=== PATIENT | male | born 1975 | race Caucasian/White ===

== ENCOUNTER 2020-05-24 03:09 | Inpatient (IN) | payer OTHER, MEDICAID ==
[~2020-05-24] VITALS: Ht 180.3 cm; Wt 194.1 kg
[2020-05-24 03:19] VITALS: BP 139/96
[2020-05-24] MEDS ORDERED: FLOVENT DISKU250 MCG INH (03:23)
[2020-05-24] MEDS ORDERED: MAGNESIUM250 M1 PO (03:24)
[2020-05-24] MEDS ORDERED: DILTIAZEM ER180 M2 PO (03:24)
[2020-05-24] MEDS ORDERED: KLOR-CON M2020 MEQ PO (03:25)
[2020-05-24] MEDS ORDERED: METFORMIN HCL500 M3 PO (03:25)
[2020-05-24] MEDS ORDERED: LIPITOR40 MG PO (03:25)
[2020-05-24] MEDS ORDERED: CARVEDILOL25 MG PO (03:26)
[2020-05-24] MEDS ORDERED: LISINOPRIL2.5 MG PO (03:26)
[2020-05-24] MEDS ORDERED: XARELTO20 MG PO (03:27)
[2020-05-24] MEDS ORDERED: FUROSEMIDE 40 M40 MG PO (03:27)
[2020-05-24] MEDS ORDERED: ASA81BEC PO (03:28)
[2020-05-24] MEDS ORDERED: METOLAZONE 2.52.5 MG PO (03:28)
[2020-05-24] MEDS ORDERED: AMARYL4 MG PO (03:28)
[2020-05-24] MEDS ORDERED: HUMALOG100 UNIT/1 SUBQ ×2 (03:29)
[2020-05-24] MEDS ORDERED: VICTOZA0.6 MG/0.1 SUBQ (03:29)
[2020-05-24] MEDS ORDERED: LANTUS SUBQ (03:30)
[2020-05-24 04:24] LABS: ABSOLUTE EOSINOPHILS 0.3 thou/uL (0.0-0.7); ABSOLUTE LYMPHOCYTES 2.8 thou/uL (0.8-5.3); ABSOLUTE MONOCYTES 0.5 thou/uL (0.0-1.2); ABSOLUTE NEUTROPHILS 5.1 thou/uL (1.6-8.1); BASOPHILS 0.5 %; EOSINOPHILS 3.2 %; HEMOGLOBIN 11.4 gm/dL (14.0-18.0); LYMPHOCYTES 32.3 %; MCHC 33.6 g/dL (28.0-37.0); MCV 92.4 fL (80.0-100.0); MONOCYTES 5.5 %; MPV 8.4 fl. (7.2-11.1); NUCLEATED RBCS 1 /100WBC; PLATELET COUNT* 277 thou/uL (150-400); POLYS 58.5 %; RBC 3.68 mil/uL (4.50-6.00); WBC 8.8 thou/uL (4.0-11.0)
[2020-05-24 05:17] LABS: INR 1.3
[2020-05-24 05:20] LABS: CREATININE 1.1 mg/dL (0.6-1.3); POTASSIUM 3.4 mmol/L (3.5-5.1)
[2020-05-24 05:31] LABS: ALBUMIN 2.8 g/dL (3.4-5.0); MAGNESIUM 1.9 mg/dL (1.8-2.4); TOTAL BILIRUBIN 0.4 mg/dL (<0.1-1.0); TOTAL PROTEIN 7.3 g/dL (6.4-8.2)
[2020-05-24 10:21] VITALS: BP 144/61
--- NOTE | 2020-05-24 13:27 | EKG ---
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1975 Requested By: Order Number: [id number] MD: Jered Steven Measurements Intervals [place] Rate: 114 P: IA: QRS: -33 QRSD: 115 T: 66 QT: 387 QTc: 534 Interpretive Statements Atrial fibrillation Left ventricular hypertrophy Prolonged QT interval Baseline wander in lead(s) II,III,aVR,aVL,aVF,V1,V2,V3,V4,V5,V6 No previous ECG available for comparison Electronically Signed On 05-24-2020 13:27:17 CDT by Jered Steven [email or web address] <ELECTRONICALLY SIGNED> By: Jered Steven MD, FAC 05/24/20 1327 9 9 Jered Steven MD, FAC /EPI
[2020-05-24 15:00] VITALS: BP 76/41
[2020-05-24 17:00] VITALS: BP 101/61
[2020-05-24 17:01] VITALS: BP 82/31
[2020-05-24 20:00] VITALS: BP 103/70
[2020-05-25] VITALS (7 sets, daily range): BP systolic 94–134; BP diastolic 66–89
[2020-05-25 04:28] LABS: ABSOLUTE BASOPHILS 0.1 thou/uL (0.0-0.2); ABSOLUTE EOSINOPHILS 0.3 thou/uL (0.0-0.7); ABSOLUTE LYMPHOCYTES 2.5 thou/uL (0.8-5.3); ABSOLUTE MONOCYTES 0.6 thou/uL (0.0-1.2); BASOPHILS 0.9 %; EOSINOPHILS 3.3 %; HEMATOCRIT 35.4 % (42.0-52.0); HEMOGLOBIN 11.8 gm/dL (14.0-18.0); LYMPHOCYTES 29.6 %; MCH 31.4 pg (26.0-34.0); MCHC 33.4 g/dL (28.0-37.0); MCV 94.1 fL (80.0-100.0); MONOCYTES 6.8 %; NUCLEATED RBCS 1 /100WBC; PLATELET COUNT* 267 thou/uL (150-400); POLYS 59.4 %; RBC 3.77 mil/uL (4.50-6.00); RDW-CV 16.9 % (10.5-14.5); WBC 8.4 thou/uL (4.0-11.0)
[2020-05-25 04:35] LABS: CALCIUM 8.1 mg/dL (8.5-10.1); CREATININE 1.3 mg/dL (0.6-1.3); POTASSIUM 3.8 mmol/L (3.5-5.1)
[2020-05-25] MEDS ORDERED: VICTOZA0.6 MG/0.1 SUBQ (14:09)
--- NOTE | 2020-05-25 17:28 | 2DMMODE ---
[place] [address] 2 D/M-MODE ECHOCARDIOGRAM Name: RMREBECA FAIRBANKS Room: [address] IN [facility]#: [id number] Admission: 05/25/20 Attend Phys: Perez Ibarra, Discharge: Date of : 73 Date of Service: 05/25/20 1728 Report #: [id number] THIS REPORT FOR: cc: Ariadne El MD, Allison Louise MD [place], Michael J. MD [facility] ~ ADDENDUM APPROVED REPORT Study performed: 05/25/2020 14:41:55 EXAM: Comprehensive 2D, Doppler, and color-flow Echocardiogram Patient Location: In-Patient Room #: [facility][note 3] Status: routine BSA: 2.91 HR: 78 bpm BP: 119/66 mmHg Rhythm: Atrial Fibrillation Other Information Technically limited study due to off axis apical imaging. Indications Atrial Fibrillation Dyspnea 2D Dimensions IVSd: 20.41 (7-11mm) LVOT Diam: 23.13 (18-24mm) LVDd: 50.40 mm PWd: 16.31 (7-11mm) Ascending Ao: 40.32 (22-36mm) LVDs: 27.13 (25-40mm) Aortic Root: 36.86 mm Pulmonary Valve PV Peak Luis Manuel.: 0.90 m/s PV Peak Gr.: 3.27 mmHg Tricuspid Valve RAP Estimate: 10.00 mmHg TR Peak Gr.: 26.41 mmHg RVSP: 36.00 mmHg PA Pressure: 36.00 mmHg Left Ventricle The left ventricle is normal size. There is normal [place] [address] 2 D/M-MODE ECHOCARDIOGRAM Name: RMREBECA FAIRBANKS Room: [address] IN [facility]#: [id number] Admission: 05/25/20 Attend Phys: Perez Ibarra, Discharge: Date of : 73 Date of Service: 05/25/20 1728 Report #: [id number] motion. Mild concentric left ventricular hypertrophy. Left ventricular systolic function is normal. LVEF is 65-70%. This study is not technically sufficient to allow evaluation of the LV diastolic function due to atrial fibrillation. Right Ventricle The right ventricle is normal size. The right ventricular systolic function is normal. Atria The left atrium size is normal. The right atrium size is normal. Aortic Valve The aortic valve is normal in structure. No aortic regurgitation is present. There is no aortic valvular stenosis. Mitral Valve The mitral valve is normal in structure. Mild mitral regurgitation. No evidence of mitral valve stenosis. Tricuspid Valve The tricuspid valve is normal in structure. Mild tricuspid regurgitation. Mild pulmonary hypertension. The RVSP is 45-50 mmHg. Pulmonic Valve The pulmonary valve is normal in structure. There is no pulmonic valvular regurgitation. Great Vessels The aortic root is normal in size. The ascending aorta is mildly dilated. (4.03 cm) IVC is dilated and collapses <50% with inspiration. Pericardium There is no pericardial effusion. <Conclusion> The left ventricle is normal size. Mild concentric left ventricular hypertrophy. Left ventricular systolic function is normal. LVEF is 65-70%. Mild mitral regurgitation. Mild tricuspid regurgitation. Mild pulmonary [place] [address] 2 D/M-MODE ECHOCARDIOGRAM Name: REBECA RM Room: [address] IN [facility]#: [id number] Admission: 05/25/20 Attend Phys: Perez Ibarra, Discharge: Date of : 73 Date of Service: 05/25/201727 Report #: [id number] The RVSP is 45-50 mmHg. IVC is dilated and collapses <50% with inspiration. The ascending aorta is mildly dilated. (4.03 cm) <ELECTRONICALLY SIGNED> By: Baljit Fisher MD, [facility] 05/25/20 1728 27 1728 Baljit Fisher MD, FACC /INF
[2020-05-26 04:00] VITALS: BP 111/68
[2020-05-26 08:00] VITALS: BP 116/77
[2020-05-26 12:25] VITALS: BP 113/62
[2020-05-26 16:20] VITALS: BP 94/67
[2020-05-26 20:00] VITALS: BP 134/65
[2020-05-27 00:27] VITALS: BP 129/83
[2020-05-27 04:00] VITALS: BP 125/75
[2020-05-27 05:07] LABS: ABSOLUTE BASOPHILS 0.1 thou/uL (0.0-0.2); ABSOLUTE EOSINOPHILS 0.3 thou/uL (0.0-0.7); ABSOLUTE LYMPHOCYTES 2.7 thou/uL (0.8-5.3); ABSOLUTE MONOCYTES 0.6 thou/uL (0.0-1.2); BASOPHILS 0.8 %; EOSINOPHILS 3.4 %; HEMATOCRIT 38.5 % (42.0-52.0); HEMOGLOBIN 12.9 gm/dL (14.0-18.0); LYMPHOCYTES 31.6 %; MCH 30.9 pg (26.0-34.0); MCHC 33.4 g/dL (28.0-37.0); MCV 92.6 fL (80.0-100.0); MONOCYTES 6.5 %; NUCLEATED RBCS 0 /100WBC; PLATELET COUNT* 334 thou/uL (150-400); POLYS 57.7 %; RBC 4.15 mil/uL (4.50-6.00); RDW-CV 16.6 % (10.5-14.5); WBC 8.7 thou/uL (4.0-11.0)
[2020-05-27 05:48] LABS: CALCIUM 9.2 mg/dL (8.5-10.1); CREATININE 1.1 mg/dL (0.6-1.3)
[2020-05-27 05:52] LABS: POTASSIUM 2.8 mmol/L (3.5-5.1)
[2020-05-27] MEDS ORDERED: LANOXIN 0.25M0.25 M1 PO (07:51)
[2020-05-27 08:00] VITALS: BP 114/61
[2020-05-27 13:18] VITALS: BP 111/78
[2020-05-27 15:28] LABS: CALCIUM 8.9 mg/dL (8.5-10.1); CREATININE 1.2 mg/dL (0.6-1.3); POTASSIUM 3.1 mmol/L (3.5-5.1)
[2020-05-27 17:34] VITALS: BP 97/55
--- NOTE | 2020-06-16 09:42 | CON ---
[address] [address] CONSULTATION Name: RMREBECA FAIRBANKS Room: [address] IN M.R.#: [id number] Admission: 05/25/20 Attend Phys: Perez Ibarra MD Discharge: 05/27/20 Date of : 73 Report #: [id number] THIS REPORT FOR: //name// cc: Ariadne El MD, Allison Louise MD ~ THIS REPORT FOR: //name// CC: Ariadne Ibarra INDICATION: Atrial fibrillation with rapid ventricular response rate. HISTORY OF PRESENT ILLNESS: The patient is a morbidly obese 44-year-old gentleman who was admitted through the Emergency Room last evening with complaints of left-sided tingling. He was noted to have atrial fibrillation with a rapid ventricular response rate at that time. He reports symptoms beginning approximately at bedtime on Saturday night. The patient had shortness of breath, but no chest pain. He is somewhat of a poor historian. It is apparent that he has had atrial fibrillation at least for a while. Cardiac risk factors include dyslipidemia, hypertension, and type 2 diabetes mellitus. EKG shows atrial fibrillation with a rapid ventricular response rate. Initial troponin was less than 0.06. At the time of my interview, he has some shortness of breath, but denies any chest pain. PAST MEDICAL HISTORY: 1. Atrial fibrillation, chronicity unknown. 2. Insulin requiring type 2 diabetes. 3. Hypertension. 4. Chronic anticoagulation. 5. Lower extremity edema, likely from chronic venous insufficiency. 6. Hypertension. 7. Lymphedema. 8. History of TIAs. 9. Reported history of myocardial infarction. ALLERGIES: None. HOME MEDICATIONS: Flovent Diskus b.i.d., magnesium one tablet b.i.d., diltiazem 60 mg daily, atorvastatin 40 mg daily, potassium chloride 20 mEq b.i.d., metformin 1000 mg b.i.d., carvedilol 25 mg b.i.d., lisinopril 2.5 mg daily, furosemide 80 mg p.o. b.i.d., Xarelto 20 mg p.o. daily, glimepiride 4 mg p.o. daily, aspirin 81 mg daily, metolazone 2.5 mg daily, insulin as directed, Victoza 1.8 mg subcutaneous b.i.d., Lantus 70 units at bedtime, lispro insulin as directed. Review of systems: Constitution: No fever, [place] [address] CONSULTATION Name: REBECA RM Room: [address] IN M.R.#: [id number] Admission: 05/25/20 Attend Phys: Perez Ibarra MD Discharge: 05/27/20 Date of : 73 Report #: [id number] HENT: Negative for nosebleeds EYES: Negative for double vision or visual loss Cardiovascular: Positive for chest pain. Negative for claudication positive for dyspnea Respiratory: negative for cough, Positive for shortness of breath Endocrine: negative for polydipsia, polyphagia, polyuria Hematologic/lymphatic: Negative for bleeding problems, easy bruising Musculoskeletal: Negative for joint pain Gastrointestinal: negative for melena, hematochezia Genitourinary: negative for dysuria, hematuria Neurologic: negative for dizzyness, focal weakness, headache Physchiatric: negative for depression, anxiety Allergic/immunologic: negative for medical allergies PHYSICAL EXAMINATION: VITAL SIGNS: Blood pressure 144/61, pulse in the one-teens and irregular. GENERAL: This is a morbidly obese white male, in no distress. Mood and affect appropriate. HEENT: The patient wears glasses. Extraocular muscles intact. Mucous membranes are moist. NECK: Shows a thick neck without obvious jugular venous distention. CHEST: Reveals clear lung winter. CARDIOVASCULAR: Reveals an irregularly irregular rhythm that is tachycardic without obvious gallop or murmur. ABDOMEN: Reveals a very protuberant abdomen, is soft, nontender. Bowel sounds present. EXTREMITIES: Show extensive lymphedema of both lower extremities with chronic skin changes secondary to this. EKG shows a rapid rate, atrial fibrillation. Troponins are unremarkable. IMPRESSION AND RECOMMENDATIONS: 1. Atrial fibrillation. Chronicity unknown. Rate is fast. We will start diltiazem drip for rate control. Repeating echocardiogram at this time. Continue Xarelto. I suspect this is chronic in nature. Outside records are requested. 2. Hypertension. Blood pressure presently stable. Continue home medications outlined above. 3. Diabetes per primary physician. 4. Volume overload with lymphedema. Continue diuretics. Convert to IV while in hospital. Follow up daily labs. [facility] [address] [place] [address] CONSULTATION Name: REBECA RM Room: M.214-P DIS IN M.R.#: [id number] Admission: 05/25/20 Attend Phys: Perez Ibarra MD Discharge: 05/27/20 Date of : 73 Report #: [id number] 5. The patient reports valvular heart disease. Repeating echocardiogram and requesting outside records. <ELECTRONICALLY SIGNED> By: Baljit Fisher MD, FACC 06/16/20 0942 1022 [id number] Fisher MD, FACC /nt
== END 2020-05-27 20:35 | disposition home or self-care (01) | DRG 292 ==
LOC: M.ERS 03:09 → M.TBA-ER 06:40 → M.2W 17:42
PROVIDERS: Emergency Medicine; Internal Medicine Cardiovascular Disease; ADMIT Internal Medicine; ATTEND Internal Medicine
DX: I11.0 Hypertensive heart disease with heart failure (principal); Z68.43 Body mass index [BMI] 50.0-59.9, adult; E66.2 Morbid (severe) obesity with alveolar hypoventilation; I48.20 Chronic atrial fibrillation, unspecified; I50.33 Acute on chronic diastolic (congestive) heart failure; E11.9 Type 2 diabetes mellitus without complications; E78.5 Hyperlipidemia, unspecified; E87.6 Hypokalemia; I95.9 Hypotension, unspecified; Z20.828 Contact with and (suspected) exposure to other viral communicable diseases; I25.2 Old myocardial infarction; Z86.73 Personal history of transient ischemic attack (TIA), and cerebral infarction without residual deficits; Z79.4 Long term (current) use of insulin; Z79.82 Long term (current) use of aspirin; Z79.84 Long term (current) use of oral hypoglycemic drugs; Z79.899 Other long term (current) drug therapy; Z79.01 Long term (current) use of anticoagulants; Z88.8 Allergy status to other drugs, medicaments and biological substances; Z87.891 Personal history of nicotine dependence

== ENCOUNTER 2020-08-08 15:19 | Emergency (ER) | payer OTHER, MEDICAID ==
[~2020-08-08] VITALS: Ht 180.3 cm; Wt 190.5 kg
[~2020-08-08 15:19] MED LIST: AMARYL4 MG PO; ASA81BEC PO; CARVEDILOL25 MG PO; DILTIAZEM ER180 M2 PO; FLOVENT DISKU250 MCG INH; FUROSEMIDE 40 M40 MG PO; HUMALOG100 UNIT/1 SUBQ; KLOR-CON M2020 MEQ PO; LANOXIN 0.25M0.25 M1 PO; LANTUS SUBQ; LIPITOR40 MG PO; LISINOPRIL2.5 MG PO; MAGNESIUM250 M1 PO; METFORMIN HCL500 M3 PO; METOLAZONE 2.52.5 MG PO; VICTOZA0.6 MG/0.1 SUBQ; XARELTO20 MG PO
[2020-08-08] MEDS ORDERED: PROAIR HFA8.5 GM INH (15:24)
[2020-08-08] MEDS ORDERED: FUROSEMIDE 20 M20 MG PO (15:25)
[2020-08-08 15:53] LABS: ABSOLUTE BASOPHILS 0.1 thou/uL (0.0-0.2); ABSOLUTE EOSINOPHILS 0.1 thou/uL (0.0-0.7); ABSOLUTE LYMPHOCYTES 1.6 thou/uL (0.8-5.3); ABSOLUTE MONOCYTES 0.5 thou/uL (0.0-1.2); ABSOLUTE NEUTROPHILS 5.3 thou/uL (1.6-8.1); BASOPHILS 1.2 %; EOSINOPHILS 1.7 %; HEMATOCRIT 32.1 % (42.0-52.0); HEMOGLOBIN 10.7 gm/dL (14.0-18.0); LYMPHOCYTES 20.9 %; MCH 30.2 pg (26.0-34.0); MCHC 33.3 g/dL (28.0-37.0); MCV 90.6 fL (80.0-100.0); MPV 7.3 fl. (7.2-11.1); NUCLEATED RBCS 0 /100WBC; PLATELET COUNT* 301 thou/uL (150-400); POLYS 69.2 %; RBC 3.54 mil/uL (4.50-6.00); WBC 7.7 thou/uL (4.0-11.0)
[2020-08-08 16:05] LABS: CALCIUM 8.1 mg/dL (8.5-10.1); CREATININE 0.8 mg/dL (0.6-1.3); POTASSIUM 3.7 mmol/L (3.5-5.1)
[2020-08-08 16:09] LABS: ALBUMIN 2.8 g/dL (3.4-5.0); TOTAL BILIRUBIN 0.7 mg/dL (<0.1-1.0); TOTAL PROTEIN 7.3 g/dL (6.4-8.2)
[2020-08-08 16:50] LABS: URINE BILIRUBIN NEGATIVE (Negative); URINE BLOOD TRACE (Negative); URINE CLARITY CLEAR; URINE COLOR YELLOW; URINE GLUCOSE-RANDOM 1+ (Negative); URINE KETONES NEGATIVE (Negative); URINE LEUKOCYTES-REFLEX NEGATIVE (Negative); URINE NITRITE-REFLEX NEGATIVE (Negative); URINE PROTEIN 3+ (Negative); URINE SPECIFIC GRAVITY >= 1.030 (1.005-1.030); URINE UROBILINOGEN 0.2 E.U./dl (0.2-1.0)
[2020-08-08] MEDS ORDERED: NORCO 5-325 TA1 EAC2 PO (16:58)
[2020-08-08 17:00] LABS: HYALINE CASTS 4-10 Moderate /LPF (None Seen); SQUAMOUS 0-3 Few /LPF (0-3)
[2020-08-08 17:01] LABS: BACTERIA-REFLEX None Seen /HPF (None Seen); CRYSTALS None Seen /LPF (None Seen); MUCUS None Seen strn/LPF (None Seen); URINE RBC 0-2 Rare /HPF (0-2); URINE WBC-REFLEX None Seen /HPF (0-5)
[2020-08-08 17:13] VITALS: BP 158/85
== END 2020-08-08 17:14 | disposition home or self-care (01) ==
LOC: M.ERS 15:19
PROVIDERS: Family Medicine
DX: N50.811 Right testicular pain (principal); N50.812 Left testicular pain; I48.91 Unspecified atrial fibrillation; E11.9 Type 2 diabetes mellitus without complications; Z86.73 Personal history of transient ischemic attack (TIA), and cerebral infarction without residual deficits; Z88.8 Allergy status to other drugs, medicaments and biological substances

== ENCOUNTER 2020-08-20 17:52 | Emergency (ER) | payer OTHER, MEDICAID ==
[~2020-08-20] VITALS: Ht 180.3 cm; Wt 217.3 kg
--- NOTE | ~2020-08-20 | EMS ---
[address] [address] EMS Patient Care Report Name: REBECA SU Room: [facility] Katarina#: [id number] Admission: 08/20/20 Attend Phys: Discharge: 08/20/20 Date of : 73 Report #: [id number] THIS REPORT FOR: //name// Report Transmitted: 08/21/2020 15:48 EMS Care Summary [facility] [id number] @ 08/20/2020 17:04 Incident Location [address] [place] [address] Patient Rebeca Su Male, 44 Years 1975 Patient Address [address] [place] [address] Patient History Endocrine Condition - Other,Edema, unspecified,Cellulitis, unspecified,Neuropathy,Chronic Obstructive Pulmonary Disease (COPD),Old myocardial infarction,Cerebral infarction, unspecified,Obesity, unspecified, Patient Allergies , Patient Medications carvedilol, glimepiride, Flovent, Lisinopril, Furosemide, Aspirin, Metformin, atorvastatin, Potassium Chloride / Sodium Chloride, Xarelto, Diltiazem, Digoxin, Hydrocodone, Chief Complaint Edema Disposition Transported No Lights/[place] Reason Sick Person Transported To [address] [address] EMS Patient Care Report Name: [facility]BECA SU [id number] Admission: 08/20/20 Attend Phys: Discharge: 08/20/20 Date of : 73 Report #: [id number] dispatched to apartment complex for a sick person. On scene, ems was met by [facility] with a 44 yom complaining of swollen testicles. Pt states he noticed the start of swelling yesterday and an increase in swelling today. Pt states he was getting up to go to the shower when he discovered a small amount of blood on his recliner. Pt claims he did not observe any bleeding yesterday or earlier in the day. Pt states he is able to ambulate but is uncomfortable and can only sit in a certain position due to pain. Pt claims he is uncertain of where exactly the blood is coming from. 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 Pt denies any blood in his stools or history of hemorrhoids. Pt reports pain being constant unless at rest and not moving. Pt states his testicles are very tender. Pt describes pain as if hes is being "poked by thumbtacks." Pt reports discontinuing a blood thinner approx one month ago as directed by his doctor, pt states he only takes aspirin currently. Pt denies chest px, sob, nausea/vomiting, dizziness, headache, fever, cough, recent trauma to genitalia. Upon arrival, pt was found sitting half way on his power wheelchair in his kitchen. Pt was awake alert and oriented, airway was patent, breathing was normal - non labored, circulation was normal and regular, skin pink warm dry, physical assessment as noted, no obvious trauma observed. Bsi, pt contact, pt stood and pivot to [place] and secured, pt loaded into unit and locked in place, abcs, vitals as noted, blood glucose, transport initiated, vitals repeated, pt reassessed, bleeding could not be located during transport, pt remained stable without changes, at destination pt was unloaded from unit and wheeled into ed, pt stood and pivoted from gurney to ed bed, pt report given and care transferred to RN at receiving facility. [id number] returned to service without incident. Initial Vitals @17:25Pain: 08/20, @17:40Pain: 12/21, @17:22SpO2: 95, @17:39SpO2: 95, @17:49SpO2: 95, @17:22P: 90,R: 18,BP: 150/90, @17:39P: 83,R: 18,BP: 174/94, @17:49P: 82,R: 18,BP: 157/107, @17:22GCS: 15, @17:39GCS: 15, @17:49GCS: 15, @17:29Glucose: 179, Assessments @17:11MENTAL:SKIN:HEENT:LUNG SOUNDS:ABDOMEN:PELVIS//GI:EXTREMITIES:PULSE:NEURO: [place] [address] EMS Patient Care Report Name: REBECA SU Room: [facility] Bray#: [id number] Admission: 08/20/20 Attend Phys: Discharge: 08/20/20 Date of : 73 Report #: [id number] Acute pain, not elsewhere classified Timeline 17:03,Call Received 17:03,Dispatch Notified 17:03,Psap Call 17:04,Dispatched 17:04,En Route 17:08,On Scene 17:11,At Patient 17:22,BP: / M,PULSE: ,RR: R,SPO2: 95 Ox,ETCO2: ,BG: ,PAIN: ,GCS: , 17:22,BP: 150/90 M,PULSE: 90,RR: 18 R,SPO2: Ox,ETCO2: ,BG: ,PAIN: ,GCS: , 17:22,BP: / M,PULSE: ,RR: R,SPO2: Ox,ETCO2: ,BG: ,PAIN: ,GCS: 15, 17:25,BP: / M,PULSE: ,RR: R,SPO2: Ox,ETCO2: ,BG: ,PAIN: 10,GCS: , 17:27,Depart Scene 17:29,BP: / M,PULSE: ,RR: R,SPO2: Ox,ETCO2: ,B,PAIN: ,GCS: , 17:39,BP: / M,PULSE: ,RR: R,SPO2: 95 Ox,ETCO2: ,BG: ,PAIN: ,GCS: , 17:39,BP: 174/94 M,PULSE: 83,RR: 18 R,SPO2: Ox,ETCO2: ,BG: ,PAIN: ,GCS: , 17:39,BP: / M,PULSE: ,RR: R,SPO2: Ox,ETCO2: ,BG: ,PAIN: ,GCS: 15, 17:40,BP: / M,PULSE: ,RR: R,SPO2: Ox,ETCO2: ,BG: ,PAIN: 2,GCS: , 17:49,BP: / M,PULSE: ,RR: R,SPO2: 95 Ox,ETCO2: ,BG: ,PAIN: ,GCS: , 17:49,BP: 157/107 M,PULSE: 82,RR: 18 R,SPO2: Ox,ETCO2: ,BG: ,PAIN: ,GCS: , 17:49,BP: / M,PULSE: ,RR: R,SPO2: Ox,ETCO2: ,BG: ,PAIN: ,GCS: 15, 17:50,At Destination 18:09,Call Closed Disclaimer v1.1 Copyright 2020 [employer] This EMS Care Summary contains data elements from the applicable legal record (which may be displayed differently). It is designed to provide pertinent information for the following purposes: continuity of care, clinical quality, and state data reporting. The complete legal record is available to ED staff and administrators of the receiving hospital in [employer]'s Patient Tracker. All data is provided "as is."
[~2020-08-20 17:52] MED LIST changes: +FUROSEMIDE 20 M20 MG PO; +NORCO 5-325 TA1 EAC2 PO; +PROAIR HFA8.5 GM INH
[2020-08-20 18:48] LABS: ABSOLUTE BASOPHILS 0.1 thou/uL (0.0-0.2); ABSOLUTE EOSINOPHILS 0.3 thou/uL (0.0-0.7); ABSOLUTE LYMPHOCYTES 1.3 thou/uL (0.8-5.3); ABSOLUTE MONOCYTES 0.5 thou/uL (0.0-1.2); ABSOLUTE NEUTROPHILS 5.4 thou/uL (1.6-8.1); BASOPHILS 1.4 %; EOSINOPHILS 3.8 %; HEMATOCRIT 31.4 % (42.0-52.0); HEMOGLOBIN 10.1 gm/dL (14.0-18.0); LYMPHOCYTES 17.2 %; MCH 28.6 pg (26.0-34.0); MCHC 32.1 g/dL (28.0-37.0); MCV 89.1 fL (80.0-100.0); MPV 7.2 fl. (7.2-11.1); NUCLEATED RBCS 0 /100WBC; PLATELET COUNT* 314 thou/uL (150-400); POLYS 71.6 %; RBC 3.53 mil/uL (4.50-6.00); RDW-CV 16.6 % (10.5-14.5); WBC 7.6 thou/uL (4.0-11.0)
[2020-08-20 18:57] LABS: CALCIUM 7.8 mg/dL (8.5-10.1); CREATININE 0.9 mg/dL (0.6-1.3); POTASSIUM 3.5 mmol/L (3.5-5.1)
[2020-08-20 18:59] LABS: APTT 32.2 Seconds (25.0-31.3); INR 1.6
[2020-08-20 19:02] LABS: ALBUMIN 2.7 g/dL (3.4-5.0); TOTAL BILIRUBIN 0.5 mg/dL (<0.1-1.0); TOTAL PROTEIN 7.1 g/dL (6.4-8.2)
[2020-08-20 22:50] VITALS: BP 132/92
== END 2020-08-20 22:52 | disposition short-term general hospital (02) ==
LOC: M.ERS 17:52
PROVIDERS: Nurse Practitioner Family
DX: S31.31XA Laceration without foreign body of scrotum and testes, initial encounter (principal); N49.2 Inflammatory disorders of scrotum; N43.3 Hydrocele, unspecified; Z20.828 Contact with and (suspected) exposure to other viral communicable diseases; E11.9 Type 2 diabetes mellitus without complications; I48.91 Unspecified atrial fibrillation; E66.01 Morbid (severe) obesity due to excess calories; Z68.44 Body mass index [BMI] 60.0-69.9, adult; Z79.4 Long term (current) use of insulin; Z88.6 Allergy status to analgesic agent; X58.XXXA Exposure to other specified factors, initial encounter; Y93.89 Activity, other specified; Y92.89 Other specified places as the place of occurrence of the external cause; Y99.8 Other external cause status